=== PATIENT | male | born 1985 | race Caucasian/White ===

== ENCOUNTER 2017-10-30 05:01 | Emergency (ER) | payer OTHER, MEDICAID, SELFPAY | END 2017-10-30 05:25 | disposition home or self-care (01) | PROVIDERS: Emergency Provider Emergency Medicine; PCP Internal Medicine; Visit Provider Emergency Medicine | DX: S39.94XA Unspecified injury of external genitals, initial encounter (principal) | CPT/HCPCS: 99282 ==